=== PATIENT | male | born 1980 | race Two or more races ===

== ENCOUNTER 2019-03-20 07:46 | Outpatient (CLI) | payer OTHER | END 2019-03-20 07:53 | disposition home or self-care (01) | LOC: SONOGRAMA 07:46 → MAMO-SONO 08:15 | DX: R10.84 Generalized abdominal pain (principal) ==

== ENCOUNTER 2019-03-23 14:00 | Outpatient (CLI) | payer OTHER | END 2019-03-23 14:09 | disposition home or self-care (01) | LOC: SONOGRAMA 14:00 | DX: E03.8 Other specified hypothyroidism (principal) ==

== ENCOUNTER 2019-03-26 07:59 | Outpatient (CLI) | payer OTHER | END 2019-03-26 08:16 | disposition home or self-care (01) | LOC: TOM 07:59 | DX: R10.84 Generalized abdominal pain (principal) ==

== ENCOUNTER 2019-11-21 08:20 | Outpatient (CLI) | payer OTHER | END 2019-11-21 08:22 | disposition home or self-care (01) | LOC: MRI 08:20 | DX: M51.36 Other intervertebral disc degeneration, lumbar region (principal); M51.37 Other intervertebral disc degeneration, lumbosacral region | CPT/HCPCS: 72149 ==